=== PATIENT | female | born 1950 | race African-American/Black ===

== ENCOUNTER 2019-04-21 19:36 | Emergency (ER) | payer MEDICARE, BC ==
[~2019-04-21] VITALS: Ht 167.6 cm; Wt 50.0 kg
[~2019-04-21 19:36] MED LIST: DOXY25TA61 PO; HYDR-4009 PO; LOSA50TA41 PO; MULT-1195 PO; S350 PO
[2019-04-21] MEDS ORDERED: ONDANSETRON HCL 4MG/2ML INJ IV STA (20:59)
[2019-04-21] MEDS ORDERED: MORPHINE SULFATE 4 MG/ML CPJ (NOT FOR IM USE) IV STA (20:59)
[2019-04-21] MEDS ORDERED: SODIUM CHLORIDE 0.9% 1,000 ML IV ONE (20:59)
[2019-04-21 22:00] LABS: BASOPHILS % 0.5 % (0.0-2.0); EOSINOPHILS % 0.1 % (0.0-5.0); HEMATOCRIT. 41.6 % (36.0-48.0); HEMOGLOBIN. 13.9 g/dL (12.0-16.0); LYMPHOCYTES % 14.4 % (20.0-50.0); MEAN CORPUSCULAR HEMOGLOBIN 30.7 pg (28.0-32.0); MEAN CORPUSCULAR VOLUME 91.6 fL (81.0-99.0); MEAN PLATELET VOLUME 9.4 fl (7.4-10.4); MONOCYTES % 2.9 % (2.0-8.0); NEUTROPHILS % 82.1 % (40.0-76.0); PLATELET 231 x1000/uL (130-400); RED BLOOD CELL COUNT 4.54 mill/uL (4.2-5.4); RED CELL DISTRIBUTION WIDTH 15.6 % (11.6-14.6)
[2019-04-21 22:04] LABS: CHLORIDE 110 mEq/L (98-107)
[2019-04-21 22:37] LABS: CLARITY URINE CLEAR (CLEAR); COLOR URINE YELLOW (YELLOW); KETONES URINE 2+ (NEGATIVE); LEUKOCYTE ESTERASE URINE 1+ (NEGATIVE); NITRITE URINE NEGATIVE (NEGATIVE); OCCULT BLOOD URINE NEGATIVE (NEGATIVE); PH URINE 6.5 (4.5-8.0); PROTEIN URINE 1+ (NEGATIVE); SPECIFIC GRAVITY URINE 1.021 (1.005-1.030); UROBILINOGEN URINE 0.2 E.U./dL (0.2-1.0)
[2019-04-21] MEDS ORDERED: CEFTRIAXONE 1 G PREMIX 50 ML IV NR (23:15)
[2019-04-22 00:54] VITALS: BP 127/76
== END 2019-04-22 00:54 | disposition home or self-care (01) ==
LOC: ER 19:36 → CANBEDREQ 04-22 07:38
DX: N39.0 Urinary tract infection, site not specified (principal); I10 Essential (primary) hypertension
CPT/HCPCS: 36415; 71045; 74176; 80053; 81003; 83690; 83880; 84484; 85025; 85610; 86850; 86900; 86901; 93005; 96361; 96365; 96375; 99284; J0696; J2270; J2405; J7030

== ENCOUNTER 2023-01-21 07:25 | Inpatient (IN) | payer MEDICARE, BC ==
[~2023-01-21] VITALS: Ht 152.6 cm; Wt 46.3 kg
[~2023-01-21 07:25] MED LIST changes: +ASPI-1497 PO; +ATOR20TA MT; +CARI350T28 PO; +CLOP-31 MT; -S350 PO
[2023-01-21 10:39] LABS: CHLORIDE 113 mEq/L (98-107)
[2023-01-21 10:40] LABS: INR 0.9; PROTHROMBIN TIME 9.9 sec (9.6-11.0)
[2023-01-21 10:52] LABS: BASOPHILS % 0.4 % (0.0-2.0); EOSINOPHILS % 0.7 % (0.0-5.0); HEMATOCRIT. 35.7 % (36.0-48.0); HEMOGLOBIN. 11.7 g/dL (12.0-16.0); LYMPHOCYTES % 9.5 % (20.0-50.0); MEAN CORPUSCULAR HEMOGLOBIN 29.2 pg (28.0-32.0); MEAN CORPUSCULAR VOLUME 88.8 fL (81.0-99.0); MEAN PLATELET VOLUME 8.8 fl (7.4-10.4); MONOCYTES % 4.4 % (2.0-8.0); PLATELET 276 x1000/uL (130-400); RED BLOOD CELL COUNT 4.02 mill/uL (4.2-5.4); RED CELL DISTRIBUTION WIDTH 14.8 % (11.6-14.6)
[2023-01-21 11:31] LABS: CLARITY URINE CLOUDY (CLEAR); COLOR URINE YELLOW (YELLOW); KETONES URINE NEGATIVE (NEGATIVE); LEUKOCYTE ESTERASE URINE TRACE (NEGATIVE); NITRITE URINE NEGATIVE (NEGATIVE); OCCULT BLOOD URINE NEGATIVE (NEGATIVE); PH URINE 6.5 (4.5-8.0); PROTEIN URINE 1+ (NEGATIVE); SPECIFIC GRAVITY URINE 1.015 (1.005-1.030); UROBILINOGEN URINE 0.2 E.U./dL (0.2-1.0)
[2023-01-21] MEDS ORDERED: IOHEXOL-300 100 ML BOTTLE ONE (11:55)
[2023-01-21] MEDS ORDERED: SODIUM CHLORIDE 0.9% 1,000 ML IV ONE ×2 (12:15→12:30)
[2023-01-21] MEDS ORDERED: MORPHINE SULFATE 2 MG/ML CPJ (NOT FOR IM USE) IV NR (12:45)
[2023-01-21] MEDS ORDERED: IPRATROPIUM/ALBUTEROL 0.5-3(2.5)MG/3ML NEB HHN PRN (14:15)
[2023-01-21] MEDS ORDERED: ACETAMINOPHEN 325MG TABLET PO PRN ×2 (14:15)
[2023-01-21] MEDS ORDERED: MAGNESIUM/ALUMINUM HYDROXIDE/SIMETHICONE 30ML UDC PO PRN (14:15)
[2023-01-21] MEDS ORDERED: DOCUSATE SODIUM 100MG CAPSULE PO PRN (14:15)
[2023-01-21] MEDS ORDERED: CLONIDINE 0.1MG TABLET PO PRN (14:15)
[2023-01-21] MEDS ORDERED: ONDANSETRON HCL 4MG/2ML INJ IV PRN (14:15)
[2023-01-21] MEDS ORDERED: GUAIFENESIN 200MG/10ML SUGAR FREE UDC PO PRN (14:15)
[2023-01-21] MEDS ORDERED: PIPERACILLIN/TAZ 3.375G PREMIX 50 ML IV NR (14:30)
[2023-01-21] MEDS ORDERED: POTASSIUM CHLORIDE 20MEQ/PACKET PO NR (14:30)
[2023-01-21 14:59] LABS: PHOSPHORUS 3.3 mg/dL (2.5-4.9)
[2023-01-21 15:00] VITALS: BP 154/67
[2023-01-21] MEDS ORDERED: NALOXONE HCL 0.4MG/ML VIAL IV PRN (15:00)
[2023-01-21] MEDS ORDERED: POTASSIUM CHLORIDE INJ 40 MEQ in DEXT 5% WATER 500 ML IV NR (15:30)
[2023-01-21] MEDS: HYDROCODONE/ACETAMINOPHEN 5/325MG TABLET PO PRN (19:42)
[2023-01-21] MEDS: CLOPIDOGREL 75MG TABLET PO SCH (19:45)
[2023-01-21] MEDS: ENOXAPARIN 40MG/0.4ML SYR SUBCUT SCH (19:46)
[2023-01-21] MEDS: PIPERACILLIN/TAZOBACTAM 3.375 G in DEXTROSE 5% WATER 50 ML IV SCH ×2 (19:46→22:35)
[2023-01-21] MEDS: ASPIRIN 81MG EC TABLET PO SCH (19:47)
[2023-01-21 20:00] VITALS: BP 139/81
[2023-01-21] MEDS: SODIUM CHLORIDE 0.45% 1,000 ML IV SCH (20:11)
[2023-01-21] MEDS ORDERED: ZOLPIDEM TARTRATE 5MG TABLET PO PRN (21:00)
[2023-01-21] MEDS: ATORVASTATIN CALCIUM 20MG TABLET PO SCH (21:43)
[2023-01-21] MEDS ORDERED: PIPERACILLIN/TAZOBACTAM 3.375 G in DEXTROSE 5% WATER 50 ML IV SCH (22:00)
[2023-01-22] VITALS: BP 139/81
[2023-01-22 07:11] LABS: BASOPHILS % 0.6 % (0.0-2.0); EOSINOPHILS % 1.5 % (0.0-5.0); HEMATOCRIT. 32.3 % (36.0-48.0); HEMOGLOBIN. 10.5 g/dL (12.0-16.0); LYMPHOCYTES % 17.6 % (20.0-50.0); MEAN CORPUSCULAR VOLUME 88.7 fL (81.0-99.0); NEUTROPHILS % 73.3 % (40.0-76.0); PLATELET 260 x1000/uL (130-400); RED BLOOD CELL COUNT 3.63 mill/uL (4.2-5.4); RED CELL DISTRIBUTION WIDTH 14.9 % (11.6-14.6)
[2023-01-22 07:25] LABS: CHLORIDE 115 mEq/L (98-107)
[2023-01-22 08:00] VITALS: BP 127/87
[2023-01-22] MEDS: PANTOPRAZOLE SODIUM 40 MG/VIAL IV SCH (08:34)
[2023-01-22] MEDS: HYDROCODONE/ACETAMINOPHEN 5/325MG TABLET PO PRN ×2 (08:34→22:19)
[2023-01-22] MEDS: CLOPIDOGREL 75MG TABLET PO SCH (08:34)
[2023-01-22] MEDS: ASPIRIN 81MG EC TABLET PO SCH (08:35)
[2023-01-22] MEDS: LOSARTAN POTASSIUM 50 MG TABLET PO SCH (08:35)
[2023-01-22 08:48] LABS: VITAMIN B12 SERUM 573 pg/mL (211-911)
[2023-01-22 08:53] LABS: HDL CHOLESTEROL 42 mg/dL (40-59); T4 FREE 1.02 ng/dL (0.76-1.46)
[2023-01-22] MEDS ORDERED: ASPIRIN 81MG EC TABLET PO SCH (09:00)
[2023-01-22] MEDS ORDERED: CLOPIDOGREL 75MG TABLET PO SCH (09:00)
[2023-01-22 10:12] LABS: FOLIC ACID (FOLATE) SERUM > 20.00 ng/mL (>5.38)
[2023-01-22 12:00] VITALS: BP 151/94
[2023-01-22 14:14] LABS: HEPATITIS B SURFACE ANTIGEN NEGATIVE
[2023-01-22] MEDS: PIPERACILLIN/TAZOBACTAM 3.375 G in DEXTROSE 5% WATER 50 ML IV SCH ×2 (15:27→22:20)
[2023-01-22] MEDS: ENOXAPARIN 40MG/0.4ML SYR SUBCUT SCH (15:27)
[2023-01-22 16:00] VITALS: BP 119/91
[2023-01-22] MEDS: SODIUM CHLORIDE 0.45% 1,000 ML IV SCH (17:56)
[2023-01-22 20:00] VITALS: BP 165/96
[2023-01-22] MEDS: ATORVASTATIN CALCIUM 20MG TABLET PO SCH (21:32)
[2023-01-23] VITALS: BP 129/77
[2023-01-23 04:00] VITALS: BP 140/88
[2023-01-23] MEDS: PIPERACILLIN/TAZOBACTAM 3.375 G in DEXTROSE 5% WATER 50 ML IV SCH (06:39)
[2023-01-23] MEDS: SODIUM CHLORIDE 0.45% 1,000 ML IV SCH (06:39)
[2023-01-23 07:17] LABS: HEMATOCRIT 31.2 % (36.0-48.0); HEMOGLOBIN 10.5 g/dL (12.0-16.0); MEAN CORPUSCULAR HEMOGLOBIN 30.1 pg (28.0-32.0); MEAN CORPUSCULAR VOLUME 89.5 fL (81.0-99.0); PLATELET 244 x1000/uL (130-400); RED BLOOD CELL COUNT 3.49 mill/uL (4.2-5.4)
[2023-01-23 07:22] LABS: CHLORIDE 116 mEq/L (98-107)
[2023-01-23 08:00] VITALS: BP 145/88
[2023-01-23] MEDS: LOSARTAN POTASSIUM 50 MG TABLET PO SCH (08:36)
[2023-01-23] MEDS: CLOPIDOGREL 75MG TABLET PO SCH (08:36)
[2023-01-23] MEDS: ASPIRIN 81MG EC TABLET PO SCH (08:36)
[2023-01-23] MEDS: PANTOPRAZOLE SODIUM 40 MG/VIAL IV SCH (08:36)
[2023-01-23] MEDS ORDERED: ENOXAPARIN 40MG/0.4ML SYR SUBCUT SCH (09:00)
[2023-01-23 11:16] VITALS: BP 145/88
[2023-01-23] MEDS: HYDROCODONE/ACETAMINOPHEN 5/325MG TABLET PO PRN (11:16)
== END 2023-01-23 14:15 | disposition home or self-care (01) | DRG 392 ==
LOC: ER 08:03 → 6EST 13:15 → EDBEDREQ 13:19 → ENRESERV 14:28 → CANRESERV 14:28
PROVIDERS: ADMIT Hospitalist; ATTEND Hospitalist
DX: K57.32 Diverticulitis of large intestine without perforation or abscess without bleeding (principal); N39.0 Urinary tract infection, site not specified; E87.20 Acidosis, unspecified; D63.8 Anemia in other chronic diseases classified elsewhere; K59.00 Constipation, unspecified; E78.5 Hyperlipidemia, unspecified; K82.8 Other specified diseases of gallbladder; D50.9 Iron deficiency anemia, unspecified; K21.9 Gastro-esophageal reflux disease without esophagitis; E87.6 Hypokalemia; I10 Essential (primary) hypertension; I73.9 Peripheral vascular disease, unspecified; Z79.02 Long term (current) use of antithrombotics/antiplatelets; Z79.82 Long term (current) use of aspirin; Z79.899 Other long term (current) drug therapy; Z87.891 Personal history of nicotine dependence
CPT/HCPCS: 36415; 74177; 80048; 80053; 80061; 81003; 82607; 82728; 82746; 83036; 83540; 83605; 83735; 84100; 84145; 84439; 84443; 85025; 85027; 86803; 87340; 93970; 99285; C9113; J1650; J2270; J2543; J3480; J7060; Q9967

== ENCOUNTER 2025-02-28 17:45 | Inpatient (IN) | payer MEDICARE, BC ==
[~2025-02-28] VITALS: Ht 160 cm; Wt 55.4 kg
[~2025-02-28 17:45] MED LIST changes: -CARI350T28 PO; -DOXY25TA61 PO; -HYDR-4009 PO
[2025-02-28 18:39] LABS: BASOPHILS % 0.5 % (0.0-2.0); EOSINOPHILS % 3.4 % (0.0-5.0); HEMATOCRIT. 30.8 % (36.0-48.0); HEMOGLOBIN. 9.9 g/dL (12.0-16.0); LYMPHOCYTES % 14.0 % (20.0-50.0); MEAN PLATELET VOLUME 9.6 fl (7.4-10.4); MONOCYTES % 8.5 % (2.0-8.0); NEUTROPHILS % 73.6 % (40.0-76.0); PLATELET 190 x1000/uL (130-400); RED BLOOD CELL COUNT 3.40 mill/uL (4.2-5.4); RED CELL DISTRIBUTION WIDTH 15.3 % (11.6-14.6)
[2025-02-28 18:54] LABS: CREATININE 0.9 mg/dL (0.6-1.0); UREA NITROGEN BLOOD 24 mg/dL (9-23)
[2025-02-28 19:58] LABS: INFLUENZA TYPE A Presumptive Negative (Pres. Neg.); INFLUENZA TYPE B Presumptive Negative (Pres. Neg.)
[2025-02-28] MEDS: SODIUM CHLORIDE 0.9% (SEPSIS BOLUS) IV ONE (20:03)
[2025-02-28] MEDS: CEFTRIAXONE 1GM/50ML 50 ML IV NR (20:16)
[2025-02-28 20:32] LABS: CLARITY URINE CLOUDY (CLEAR); COLOR URINE YELLOW (YELLOW); GLUCOSE URINE NEGATIVE (NEGATIVE); KETONES URINE NEGATIVE (NEGATIVE); LEUKOCYTE ESTERASE URINE 1+ (NEGATIVE); NITRITE URINE POSITIVE (NEGATIVE); OCCULT BLOOD URINE NEGATIVE (NEGATIVE); PH URINE 8.0 (4.5-8.0); PROTEIN URINE 1+ (NEGATIVE); SPECIFIC GRAVITY URINE 1.015 (1.005-1.030); UROBILINOGEN URINE 1.0 E.U./dL (0.2-1.0)
[2025-02-28] MEDS: POTASSIUM CHLORIDE 20MEQ/PACKET PO NR (20:34)
[2025-02-28 20:45] LABS: AMORPHOUS SEDIMENT URINE 1+ /lpf; BACTERIA URINE 2+; RBC URINE 0-2 /hpf (0-2); SQUAMOUS EPITHELIAL CELL URINE 1+ /lpf (RARE/1+)
[2025-02-28] MEDS ORDERED: IPRATROPIUM/ALBUTEROL 0.5-3(2.5)MG/3ML NEB HHN PRN (21:15)
[2025-02-28] MEDS ORDERED: HYDROCODONE/ACETAMINOPHEN 5/325MG TABLET PO PRN (21:15)
[2025-02-28] MEDS ORDERED: GUAIFENESIN 200MG/10ML SUGAR FREE UDC PO PRN (21:15)
[2025-02-28] MEDS ORDERED: ONDANSETRON HCL 4MG/2ML INJ IV PRN (21:15)
[2025-02-28] MEDS ORDERED: ACETAMINOPHEN 325MG TABLET PO PRN ×2 (21:15)
[2025-02-28 21:27] VITALS: BP 121/73; PULSE 74; RESP 16; TEMP 34; O2SAT 100
[2025-02-28] MEDS ORDERED: CLONIDINE 0.1MG TABLET PO PRN (21:30)
[2025-02-28] MEDS: SODIUM CHLORIDE 0.45% 1,000 ML IV ONE (21:45)
[2025-02-28] MEDS ORDERED: NALOXONE HCL 0.4MG/ML VIAL IV PRN (21:45)
[2025-02-28] MEDS ORDERED: DOCUSATE SODIUM 250MG CAPSULE PO PRN (22:00)
[2025-02-28] MEDS: CYCLOBENZAPRINE 10MG TABLET PO SCH (22:27)
[2025-02-28] MEDS: AZITHROMYCIN 500 MG TABLET PO SCH (22:27)
[2025-02-28] MEDS: METHYLPREDNISOLONE SOD SUCC 40MG/ML (ACT-O-VIAL) IV SCH (22:28)
[2025-02-28] MEDS: PANTOPRAZOLE SODIUM 40 MG/VIAL IV SCH (22:42)
[2025-02-28 23:10] VITALS: BP 137/77; PULSE 75; RESP 16; TEMP 37
[2025-03-01] VITALS (7 sets, daily range): BP systolic 93–121; BP diastolic 57–75; PULSE 62–75; RESP 16–56; TEMP 35.6–36.7; O2SAT 98–100
[2025-03-01] MEDS: HYDROCODONE/ACETAMINOPHEN 10/325MG TABLET PO PRN (01:00)
[2025-03-01] MEDS ORDERED: AMLO5TAB88 MT (03:27)
[2025-03-01] MEDS ORDERED: ATEN-175 MT (03:27)
[2025-03-01] MEDS ORDERED: HYDR-4009 MT (03:27)
[2025-03-01] MEDS ORDERED: CARI250T MT (03:27)
[2025-03-01] MEDS ORDERED: POTA10CA93 MT (03:27)
[2025-03-01] MEDS: POTASSIUM CHLORIDE 20MEQ/PACKET PO SCH (05:21)
[2025-03-01 06:56] LABS: HEMATOCRIT. 28.2 % (36.0-48.0); HEMOGLOBIN. 9.2 g/dL (12.0-16.0); MEAN PLATELET VOLUME 10.0 fl (7.4-10.4); PLATELET 181 x1000/uL (130-400); RED BLOOD CELL COUNT 3.12 mill/uL (4.2-5.4); RED CELL DISTRIBUTION WIDTH 15.4 % (11.6-14.6)
[2025-03-01 07:06] LABS: INR 0.9
[2025-03-01 07:09] LABS: CREATININE 0.8 mg/dL (0.6-1.0); TRIGLYCERIDE 69 mg/dL (0-150); TROPONIN I HIGH SENSITIVITY 5 ng/L (3.0-34); UREA NITROGEN BLOOD 21 mg/dL (9-23)
[2025-03-01 07:10] LABS: LDL CHOLESTEROL 50 mg/dL (5-100)
[2025-03-01 07:11] LABS: ASPARTATE AMINOTRANSFERASE 21 IU/L (<34); BILIRUBIN DIRECT < 0.1 mg/dL (<=3.0); BILIRUBIN TOTAL 0.2 mg/dL (0.1-1.0); PHOSPHORUS 2.0 mg/dL (2.5-4.9); PROTEIN TOTAL 6.5 g/dL (6.0-8.3)
[2025-03-01 07:13] LABS: T4 FREE 0.98 ng/dL (0.89-1.76)
[2025-03-01] MEDS ORDERED: CLOPIDOGREL 75MG TABLET PO SCH (09:00)
[2025-03-01] MEDS: LOSARTAN 100 MG TABLET PO SCH (09:00)
[2025-03-01] MEDS ORDERED: ENOXAPARIN 40MG/0.4ML SYR SUBCUT SCH (09:00)
[2025-03-01] MEDS: AMLODIPINE 5MG TABLET PO SCH (09:00)
[2025-03-01] MEDS ORDERED: LOSARTAN 50 MG TABLET PO SCH (09:00)
[2025-03-01 10:19] LABS: BAND% 13.0 % (1.0-6.0); LYMPHOCYTES % MANUAL 9.0 % (20.0-60.0); MONOCYTES % MANUAL 2.0 % (2.0-8.0); NEUTROPHILS % MANUAL 76.0 % (45.0-75.0); PLATELET ESTIMATE NORMAL
[2025-03-01] MEDS: MAGNESIUM 2 G PREMIX 50 ML IV NR (11:30)
[2025-03-01] MEDS: ASPIRIN 81MG EC TABLET PO SCH (11:36)
[2025-03-01] MEDS: MAGNESIUM OXIDE 400MG TABLET PO SCH (11:36)
[2025-03-01] MEDS: ENOXAPARIN 30MG/0.3ML SYR SUBCUT SCH (11:37)
[2025-03-01] MEDS: AZITHROMYCIN 250 MG TABLET PO SCH (21:37)
[2025-03-01] MEDS: ATORVASTATIN CALCIUM 20MG TABLET PO SCH (21:37)
[2025-03-01] MEDS: CEFTRIAXONE 1GM/50ML 50 ML IV SCH (22:16)
[2025-03-02] VITALS (7 sets, daily range): BP systolic 101–142; BP diastolic 57–86; PULSE 63–83; RESP 16–20; TEMP 36.3–36.6; O2SAT 95–99
[2025-03-02] MEDS: IPRATROPIUM/ALBUTEROL 0.5-3(2.5)MG/3ML NEB HHN SCH (00:40)
[2025-03-02 07:35] LABS: BASOPHILS % 0.1 % (0.0-2.0); EOSINOPHILS % 0.0 % (0.0-5.0); HEMATOCRIT. 28.5 % (36.0-48.0); HEMOGLOBIN. 9.1 g/dL (12.0-16.0); LYMPHOCYTES % 7.6 % (20.0-50.0); MEAN PLATELET VOLUME 10.0 fl (7.4-10.4); MONOCYTES % 4.1 % (2.0-8.0); NEUTROPHILS % 88.2 % (40.0-76.0); PLATELET 206 x1000/uL (130-400); RED BLOOD CELL COUNT 3.18 mill/uL (4.2-5.4); RED CELL DISTRIBUTION WIDTH 15.7 % (11.6-14.6)
[2025-03-02 07:57] LABS: CREATININE 1.1 mg/dL (0.6-1.0); UREA NITROGEN BLOOD 27.0 mg/dL (9-23)
[2025-03-02 13:39] LABS: PHOSPHORUS 2.6 mg/dL (2.5-4.9)
[2025-03-02] MEDS: POTASSIUM PHOSPHATE 20 MMOL in DEXT 5% WATER 243.3333 ML IV ONE (17:36)
[2025-03-03] VITALS (7 sets, daily range): BP systolic 112–136; BP diastolic 66–73; PULSE 54–98; RESP 14–18; TEMP 36.3–36.7; O2SAT 92–100
[2025-03-03] MEDS ORDERED: SODIUM CHLORIDE 0.45% 1,000 ML IV ONE (08:00)
[2025-03-03 08:20] LABS: HEMATOCRIT. 28.5 % (36.0-48.0); HEMOGLOBIN. 9.2 g/dL (12.0-16.0); MEAN PLATELET VOLUME 9.7 fl (7.4-10.4); PLATELET 213 x1000/uL (130-400); RED BLOOD CELL COUNT 3.20 mill/uL (4.2-5.4); RED CELL DISTRIBUTION WIDTH 14.9 % (11.6-14.6)
[2025-03-03 08:37] LABS: CREATININE 0.8 mg/dL (0.6-1.0); UREA NITROGEN BLOOD 25 mg/dL (9-23)
[2025-03-03] MEDS: MULTIVITAMINS,THER W-MINERALS TABLET PO SCH (08:56)
[2025-03-03 09:00] LABS: BAND% 7.0 % (1.0-6.0); LYMPHOCYTES % MANUAL 4.0 % (20.0-60.0); MONOCYTES % MANUAL 5.0 % (2.0-8.0); NEUTROPHILS % MANUAL 84.0 % (45.0-75.0); PLATELET ESTIMATE NORMAL
[2025-03-03] MEDS ORDERED: METH4TAB95 MT (11:09)
[2025-03-03] MEDS ORDERED: NITR-87 MT (11:09)
[2025-03-03] MEDS ORDERED: ALBU18HF2 IH (11:09)
[2025-03-03] MEDS ORDERED: METHYLPREDNISOLONE SOD SUCC 40MG/ML (ACT-O-VIAL) IV SCH (21:00)
[2025-03-04] MEDS ORDERED: FAMOTIDINE 20MG/2ML VIAL IV SCH (09:00)
== END 2025-03-03 15:31 | disposition home health service (06) | DRG 871 ==
LOC: ER 17:45 → EDBEDREQ 19:41 → ENRESERV 21:00 → 5WST 21:50
PROVIDERS: ADMIT Internal Medicine; ATTEND Internal Medicine
DX: A41.51 Sepsis due to Escherichia coli [E. coli] (principal); E43 Unspecified severe protein-calorie malnutrition; J96.00 Acute respiratory failure, unspecified whether with hypoxia or hypercapnia; N39.0 Urinary tract infection, site not specified; J44.1 Chronic obstructive pulmonary disease with (acute) exacerbation; N17.9 Acute kidney failure, unspecified; Z68.1 Body mass index [BMI] 19.9 or less, adult; E78.5 Hyperlipidemia, unspecified; E83.39 Other disorders of phosphorus metabolism; E83.42 Hypomagnesemia; G89.21 Chronic pain due to trauma; Z20.822 Contact with and (suspected) exposure to COVID-19; I12.9 Hypertensive chronic kidney disease with stage 1 through stage 4 chronic kidney disease, or unspecified chronic kidney disease; K21.9 Gastro-esophageal reflux disease without esophagitis; N18.1 Chronic kidney disease, stage 1; R79.89 Other specified abnormal findings of blood chemistry; E87.6 Hypokalemia; D64.9 Anemia, unspecified; M41.9 Scoliosis, unspecified; K59.00 Constipation, unspecified; I73.9 Peripheral vascular disease, unspecified; F17.210 Nicotine dependence, cigarettes, uncomplicated; Z79.02 Long term (current) use of antithrombotics/antiplatelets; Z79.82 Long term (current) use of aspirin; Z79.899 Other long term (current) drug therapy; Z86.0100 Personal history of colon polyps, unspecified
CPT/HCPCS: 36415; 71045; 76770; 80048; 80061; 80076; 81003; 82040; 82550; 82728; 83036; 83540; 83550; 83605; 83735; 83880; 84100; 84134; 84145; 84439; 84443; 84484; 85025; 85379; 86850; 86900; 87077; 87186; 87426; 87804; 93005; 93306; 93970; 94070; 94640; 94664; 97161; 97166; 98960; 99291; J0696; J1650; J2470; J2919; J3475; J3490; J7060